=== PATIENT | female | born 1955 | race Caucasian/White ===

== ENCOUNTER 2018-11-26 11:10 | Emergency (ER) | payer BC ==
[2018-11-26 11:48] VITALS: BP 129/94
--- NOTE | 2018-11-26 12:11 | UC ---
Throat Pain/Nasal Rocky HPI - HPI Summary HPI Summary: Congestion for about 5 days. Son was sick with similar symp[toms. Last sinusitis was years ago. No fever or dental pain. - History of Current Complaint Chief Complaint: UCGeneralIllness Stated Complaint: SINUS COMPLAINT Time Seen by Provider: 11/26/18 12:01 Hx Obtained From: Patient Hx Last Menstrual Period: 14 years ago. Onset/Duration: Gradual Onset, Lasting Days, Still Present Severity: Moderate Pain Intensity: 0 Cough: None Associated Signs & Symptoms: Positive: Hoarseness, Sinus Discomfort, Nasal Discharge. Negative: Fever, Vomiting - Allergies/Home Medications Allergies/Adverse Reactions: Allergies Allergy/AdvReac Type Severity Reaction Status Date / Time No Known Allergies Allergy Verified 11/26/18 11:48 PMH/Surg Hx/FS Hx/Imm Hx Previously Healthy: No - celiac Cardiovascular History: Cardiac Disease Other History Of: Negative For: HIV, Hepatitis B, Hepatitis C - Surgical History Surgical History: Yes Surgery Procedure, Year, and Place: COLON RESECTION 2006, CARPAL TUNNEL LEFT HAND 2009, THYROIDECTOMY 2001 - Family History Known Family History: Positive: Non-Contributory - Social History Lives: With Family Alcohol Use: Daily Substance Use Type: None Smoking Status (MU): Never Smoked Tobacco Review of Systems All Other Systems Reviewed And Are Negative: Yes ENT: Positive: Sinus Congestion Physical Exam Triage Information Reviewed: Yes Appearance: Well-Appearing Vital Signs: Initial Vital Signs Temp 98.5 F 11/26/18 11:46 Pulse 78 11/26/18 11:46 Resp 16 11/26/18 11:46 BP 129/94 11/26/18 11:46 Pulse Ox 98 11/26/18 11:46 Vital Signs Reviewed: Yes Eye Exam: Normal Eyes: Positive: Conjunctiva Clear. Negative: Conjunctiva Inflamed ENT: Positive: Normal ENT inspection, Pharynx normal, Pharyngeal erythema, Nasal congestion, TM bulging, Hoarse voice, Uvula midline. Negative: Nasal drainage, TM dull, TM red, Tonsillar swelling, Tonsillar exudate, Trismus, Muffled voice, Sinus tenderness Neck: Positive: Supple, Nontender, No Lymphadenopathy Respiratory: Positive: Chest non-tender, Lungs clear, Normal breath sounds, No respiratory distress, No accessory muscle use. Negative: Respiratory distress, Decreased breath sounds, Accessory muscle use, Crackles, Rhonchi, Stridor Cardiovascular: Positive: RRR, No Murmur, Pulses Normal Abdomen Description: Positive: Nontender, No Organomegaly, Soft. Negative: Distended, Guarding Musculoskeletal: Positive: Strength Intact, ROM Intact, No Edema Neurological: Positive: Alert, Muscle Tone Normal. Negative: Fatigued Psychological: Positive: Normal Response To Family Skin: Negative: Rashes Throat Pain/Nasal Course/Dx - Differential Dx/Diagnosis Provider Diagnosis: Rhinosinusitis Discharge - Sign-Out/Discharge Documenting (check all that apply): Patient Departure All imaging exams completed and their final reports reviewed: No Studies - Discharge Plan Condition: Good Disposition: HOME Prescriptions: Amoxicillin PO (*) [Amoxicillin 500 MG CAP*] 500 mg PO TID #30 cap Patient Education Materials: Sinusitis (ED), Rhinosinusitis (ED) Referrals: Samina Martínez MD [Primary Care Provider] - If Needed Additional Instructions: start antibiotic on day 9 or 10 if there is no improvement or if there is a sudden sinus pain. Until they try flonase twice a day and nasal saline irrigation. - Billing Disposition and Condition Condition: GOOD Disposition: Home
== END 2018-11-26 12:12 | disposition home or self-care (01) ==
LOC: UCCORT 11:10
DX: J32.9 Chronic sinusitis, unspecified (principal)
CPT/HCPCS: 99212; G0463